=== PATIENT | male | born 1940 | race Caucasian/White ===

== ENCOUNTER → 2023-07-09 06:08 | Outpatient (REF) | payer BC, MEDICARE, SELFPAY ==
[2023-07-09 10:05] LABS: Glycohemoglobin (HgbA1c) 6.5 % (4.0-5.6)
[2023-07-09 10:09] LABS: ALT (SGPT) 58 U/L (0-50); AST (SGOT) 52 U/L (17-59); Albumin 4.4 g/dl (3.5-5.0); Alkaline Phosphatase 57 U/L (38-126); Blood Urea Nitrogen 37 mg/dl (9-20); Calcium 9.6 mg/dl (8.4-10.2); Carbon Dioxide 24 mmol/L (22-30); Chloride 107 mmol/L (98-107); Glucose 120 mg/dl (70-99); HDL Cholesterol 30 mg/dl; LDL Cholesterol, Calculated 58 mg/dl; Potassium 4.4 mmol/L (3.5-5.1); Sodium 138 mmol/L (135-145); Total Cholesterol 123 mg/dl (50-199); Total Protein 7.3 g/dl (6.3-8.2); Triglyceride 176 mg/dl (10-149); Very Low Density Lipoprotein 35 mg/dl (0-30); eGFR > 60.00
[2023-07-09 10:13] LABS: Urine Protein 5 mg/dl
[2023-07-09 10:18] LABS: Microalbumin, Random Urine 3.3 mg/dl (0.6-1.7); Microalbumin/creatinine Ratio 29.9 mg/g
== END ==
LOC: HWLAB 06:08
PROVIDERS: ATTENDING PHYSICIAN Internal Medicine Endocrinology, Diabetes & Metabolism; FAMILY PHYSICIAN Family Medicine
DX: E11.9 Type 2 diabetes mellitus without complications (principal); E11.65 Type 2 diabetes mellitus with hyperglycemia; Z79.4 Long term (current) use of insulin; I10 Essential (primary) hypertension; E03.8 Other specified hypothyroidism
CPT/HCPCS: 36415; 80053; 80061; 82043; 82570; 83036; 84156; 84443

== ENCOUNTER 2023-07-13 08:05 | Emergency (ER) | payer BC, SELFPAY ==
[2023-07-13 08:09] VITALS: BP 186/74
--- NOTE | 2023-07-13 08:33 | ED.GENMED ---
History of Present Illness
General
Chief Complaint: Back Pain
Time Seen by Provider: 07/13/23 08:23
Travel History
Have you had any contact with someone who has COVID-19?: No
Do you have any symptoms of coronavirus? Fever > 100 degrees, chills, cough, shortness of breath, sore throat, loss of taste or smell, muscle aches, or headache?: No
History of Present Illness
History of Present Illness:
83-year-old male with history of insulin-dependent diabetes, hypothyroidism, and hypertension presents to the emergency department for evaluation of acute onset left-sided low back pain radiating to the left foot upon awakening today. Pain is quite
positional and worse when he is upright or attempting to walk. Has no pain while lying semireclined in the exam bed. Denies any lower extremity paresthesias. No recent lower urinary tract voiding symptoms, hematuria, or urinary retention. Denies
any associated fevers or chills. No recent traumatic injuries or known inciting events
Past History
Past History
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
ED Past Surgical History: Urological (Ureteral stent, TUPR, Lithotripsy) and Other (bilateral Inguinal hernia repair 1978 -1979 Parathyroid resection, Cataract surgery)
Social History
Tobacco: Former smoker
Alcohol: Occasional
Drug: None
Personal:
Living: with family
Employment: Retired
Family History
Family History: Other (Noncontributory)
Review of Systems
Review of Systems
Allergies reviewed?: Yes
All Other Systems: ROS reviewed and negative except as documented in HPI and ROS
Phy Exam
Physical Exam
Physical Exam:
GEN: Well appearing, NAD, WDWN
HEENT: Oral mucosa moist, no scleral icterus
Cardiac: Regular rate
Lung: No respiratory distress, no tachypnea
MSK: No gross deformity or injuries. No midline lumbar spine tenderness. No paraspinous muscle tenderness. Patient notes increased pain when lying supine. Left hip range of motion without crepitus or elicited pain. Positive straight leg raise
at 30 degrees
Skin: Good color, no pallor or jaundice, no rashes
Neuro: AO x3, moves all extremities freely
Psych: Calm, cooperative
Course
Orders/Labs/Results
Orders:
Orders
07/13/23 08:32
Ketorolac [Toradol] 30 mg IM NOW STA
07/13/23 08:45
Lidocaine [Lidocaine 4% Patch] 1 patch TOPICAL DAILY
Vital Signs
Initial and Last Documented VS:
Initial Vital Signs
Temp Pulse Resp BP Pulse Ox
97.8 F 61 16 186/74 98
07/13/23 08:09 07/13/23 08:09 07/13/23 08:09 07/13/23 08:09 07/13/23 08:09
Last Documented Vital Signs
Temp Pulse Resp BP Pulse Ox
97.8 F 61 16 186/74 98
07/13/23 08:09 07/13/23 08:09 07/13/23 08:09 07/13/23 08:09 07/13/23 08:09
MDM/Problems Addressed
MDM/Problems Addressed:
Clinical symptoms are consistent with acute radiculopathy, potentially discogenic in nature versus muscular. Patient has no urinary incontinence, no saddle anesthesias concerning for emergent condition such as cauda equina. No trauma that would
warrant imaging. Given he is diabetic and has had a recent remarkable improvement in his hemoglobin A1c I find it excessive to trial steroids at this time, we will give him a short course of NSAIDs and nighttime use muscle relaxants, outpatient
physical therapy orders written if symptoms do not improve in the next 3 to 5 days
*Critical Care Note
Total Time (30-74mins, 75-104mins- exclusive of procedures): Not Applicable
ED Attending Note
-
Portions of this chart may have been created with voice recognition software.� Occasional wrong word or��sound alike� substitutions may have occurred due to the inherent limitations of voice recognition software.
Discharge Plan
Departure
Patient Disposition: Home (Routine Discharge)
Date of Disposition: 07/13/23
Time of Disposition: 09:35
Patient with high blood pressure during this ER visit?: No
Discharge Problem:
Acute left lumbar radiculopathy
Instructions: Sciatica (DC)
Prescriptions:
New
diclofenac sodium 50 mg tablet,delayed release (DR/EC)
50 mg PO BID PRN (Reason: Pain) Qty: 20 0RF
methocarbamol 500 mg tablet
500 mg PO HS PRN (Reason: muscle pain) Qty: 10 0RF
No Action
levothyroxine 200 MCG tablet
200 mcg PO QPM
aspirin 325 MG tablet,delayed release (DR/EC)
325 mg PO DAILY
potassium citrate 10 MEQ tablet extended release
10 meq PO QPM
simvastatin 20 MG tablet
20 mg PO QPM
metformin 500 MG tablet extended release 24 hr
1,000 mg PO QPM
amlodipine 5 MG tablet
10 mg PO QPM
hydrochlorothiazide 25 mg Tablet
25 mg PO QPM
insulin glargine [Basaglar KwikPen U-100 Insulin] 100 unit/mL (3 mL) Insulin Pen
44 unit SC HS
Rx Instructions:
pt took 35 units
Aspart Flex Pen
10 unit SC AC
Rx Instructions:
10 units
tamsulosin [Flomax] 0.4 mg capsule
0.4 mg PO HS Qty: 7 0RF
ondansetron 4 mg tablet,disintegrating
4 mg PO Q8H PRN (Reason: nausea and vomiting) Qty: 7 0RF
oxycodone-acetaminophen [Percocet] 5-325 mg tablet
1 tab PO Q4HPRN PRN (Reason: pain) Qty: 10 0RF
meclizine 12.5 mg tablet
12.5 - 25 mg PO TID PRN (Reason: dizziness) Qty: 15 0RF
Referrals:
Aayush Ashby MD [Family Provider] -
Activity Restrictions/Additional Instructions:
No over the counter aspirin/ibuprofen/naproxen while using the diclofenac
Use the muscle relaxant only at nighttime
If your symptoms are not improving over the weekend, schedule a follow up appointment with physical therapy
If you develop difficulty urinating or numbness in your thighs, return to the ER immediately
Follow up with your primary doctor within 1 week
Interventions
Interventions:
*Risk Screen - Suicide Last Done: 07/13/23 08:09
*General Assessment Last Done: 07/13/23 08:09
*Neglect/Abuse Screening Last Done: 07/13/23 08:09
ED- Fall Risk Assessment Last Done: 07/13/23 09:19
ED-Musculoskeletal Assessment Last Done: 07/13/23 09:19
[2023-07-13] MEDS: TORADOL 30 MG IM (09:09)
[2023-07-13] MEDS: LIDOCAINE 4% PATCH 1 PATCH TOPICAL (09:10)
== END 2023-07-13 09:45 | disposition home or self-care (01) ==
LOC: EMR 08:05
PROVIDERS: EMERGENCY PHYSICIAN Emergency Medicine; FAMILY PHYSICIAN Family Medicine
DX: M54.16 Radiculopathy, lumbar region (principal); E11.9 Type 2 diabetes mellitus without complications; Z87.891 Personal history of nicotine dependence
CPT/HCPCS: 99284; 96372

== ENCOUNTER 2023-08-20 14:28 | Emergency (ER) | payer BC, SELFPAY ==
[2023-08-20 14:33] VITALS: BP 119/63
[2023-08-20 14:56] LABS: % Basophils 0.2 % (0-2); % Eosinophils 2.9 % (0-6); % Immature Granulocytes 0.6 % (0-0.5); % Lymphocytes 14.1 % (20.5-51.1); % Neutrophils 74.2 % (42.2-75.2); Absolute Eosinophils 0.3 10^3/uL (0-0.7); Absolute Immature Granulocytes 0.1 10^3/uL (0-0.05); Absolute Lymphocytes 1.2 10^3/uL (1.2-3.4); Absolute Monocytes 0.7 10^3/uL (0.1-0.6); Absolute Neutrophils 6.3 10^3/uL (1.4-6.5); Hematocrit 44.5 % (39.0-52.0); Hemoglobin 15.8 g/dL (13.0-18.0); Mean Corp Hgb Conc. 35.5 g/dL (33.0-37.0); Mean Corpuscular Hgb 29.5 pg (27.0-31.0); Nucleated Red Blood Cells % 0 % (-); Platelet Count 145 10^3/uL (130-400); Red Blood Cell Count 5.36 10^6/uL (4.70-6.10); Red Cell Dist. Width 14.6 % (11.5-14.5); White Blood Cell Count 8.5 10^3/uL (4.8-10.8)
[2023-08-20 14:57] LABS: Urine Albumin Trace (Neg - Trace); Urine Bilirubin Negative (Negative); Urine Character Clear (Clear); Urine Color Yellow; Urine Glucose Negative (Negative); Urine Ketone Negative (Negative); Urine Leukocyte Negative (Negative); Urine Nitrite Negative (Negative); Urine Occult Blood Negative (Negative); Urine Urobilinogen Negative (Neg - 1+)
[2023-08-20 15:30] LABS: ALT (SGPT) 66 U/L (0-50); AST (SGOT) 49 U/L (17-59); Albumin 4.6 g/dl (3.5-5.0); Alkaline Phosphatase 65 U/L (38-126); Blood Urea Nitrogen 27 mg/dl (9-20); Calcium 9.4 mg/dl (8.4-10.2); Carbon Dioxide 22 mmol/L (22-30); Chloride 107 mmol/L (98-107); Glucose 116 mg/dl (70-99); Potassium 4.5 mmol/L (3.5-5.1); Sodium 136 mmol/L (135-145); Total Bilirubin 1.4 mg/dl (0.2-1.3); Total Protein 7.7 g/dl (6.3-8.2); eGFR > 60.00
[2023-08-20 16:16] VITALS: BP 157/71
--- NOTE | 2023-08-20 16:20 | ED.GENMED ---
History of Present Illness
General
Chief Complaint: Back Pain
Time Seen by Provider: 08/20/23 15:41
Travel History
Have you had any contact with someone who has COVID-19?: No
Do you have any symptoms of coronavirus? Fever > 100 degrees, chills, cough, shortness of breath, sore throat, loss of taste or smell, muscle aches, or headache?: No
History of Present Illness
History of Present Illness:
83-year-old male with history of hypertension and hyperlipidemia presents to the emergency department for evaluation of left lower back pain that developed yesterday. 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
began. It worsened this morning. He is concerned that it could be a kidney stone although denies any radiation of symptoms anteriorly or any difficulty with urination. He was seen in this emergency department approximately 1 month ago for
left-sided lumbar radiculopathy and improved after anti-inflammatory administration.
Past History
Past History
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
ED Past Surgical History: Urological (Ureteral stent, TUPR, Lithotripsy) and Other (bilateral Inguinal hernia repair 1978 -1979 Parathyroid resection, Cataract surgery)
Social History
Tobacco: Former smoker
Alcohol: Occasional
Drug: None
Personal:
Living: with family
Employment: Retired
Family History
Family History: Other (Noncontributory)
Review of Systems
Review of Systems
Allergies reviewed?: Yes
All Other Systems: ROS reviewed and negative except as documented in HPI and ROS
Phy Exam
Physical Exam
Physical Exam:
GEN: Well appearing, NAD, WDWN
HEENT: Oral mucosa moist, no scleral icterus
Cardiac: Regular rate
Lung: No respiratory distress, no tachypnea
MSK: No gross deformity or injuries. Reproducible tenderness to the left lumbar paraspinous musculature, no CVA tenderness bilaterally. Negative straight leg raise test bilaterally, normal left hip range of motion
Skin: Good color, no pallor or jaundice, no rashes
Neuro: AO x3, moves all extremities freely
Psych: Calm, cooperative
Course
Orders/Labs/Results
Orders:
Orders
08/20/23 14:43
Complete Blood Count/With Diff Urgent
Comprehensive Metabolic Panel Urgent
Urinalysis Reflex To Culture Urgent
Date Specimen was Collected: 08/20/23
Time Specimen was Collected: 14:36
08/20/23 16:17
Ketorolac [Toradol] 30 mg IM NOW STA
Abnormal Lab Results
08/20/23
14:43
RDW 14.6 H %
(11.5-14.5)
MPV 11.0 H fL
(7.4-10.4)
Abs Immat Gran (auto) 0.1 H 10^3/uL
(0-0.05)
Absolute Monos (auto) 0.7 H 10^3/uL
(0.1-0.6)
Immature Gran % 0.6 H %
(0-0.5)
Lymphocytes % 14.1 L %
(20.5-51.1)
BUN 27 H mg/dl
(9-20)
Glucose 116 H mg/dl
(70-99)
Total Bilirubin 1.4 H mg/dl
(0.2-1.3)
ALT 66 H U/L
(0-50)
08/20/23 14:43
08/20/23 14:43
Vital Signs
Initial and Last Documented VS:
Initial Vital Signs
Temp Pulse Resp BP Pulse Ox
99.5 F 95 18 119/63 100
08/20/23 14:33 08/20/23 14:33 08/20/23 14:33 08/20/23 14:33 08/20/23 14:33
Last Documented Vital Signs
Temp Pulse Resp BP Pulse Ox
99.5 F 89 16 157/71 95
08/20/23 14:33 08/20/23 16:16 08/20/23 16:16 08/20/23 16:16 08/20/23 16:16
MDM/Problems Addressed
MDM/Problems Addressed:
Patient's labs are reassuring and lack of hematuria is suggestive of musculoskeletal etiology as opposed to kidney stone. No indication for imaging from my standpoint. Will treat with short course of NSAIDs, he was given diclofenac during his last
stay and did not take this fully thus he will continue to take it until resolution of pain
*Critical Care Note
Total Time (30-74mins, 75-104mins- exclusive of procedures): Not Applicable
ED Attending Note
-
Portions of this chart may have been created with voice recognition software.� Occasional wrong word or��sound alike� substitutions may have occurred due to the inherent limitations of voice recognition software.
Discharge Plan
Departure
Patient Disposition: Home (Routine Discharge)
Date of Disposition: 08/20/23
Time of Disposition: 16:31
Patient with high blood pressure during this ER visit?: No
Discharge Problem:
Low back pain
Instructions: Low Back Pain (DC)
Prescriptions:
No Action
levothyroxine 200 MCG tablet
200 mcg PO QPM
aspirin 325 MG tablet,delayed release (DR/EC)
325 mg PO DAILY
potassium citrate 10 MEQ tablet extended release
10 meq PO QPM
simvastatin 20 MG tablet
20 mg PO QPM
metformin 500 MG tablet extended release 24 hr
1,000 mg PO QPM
amlodipine 5 MG tablet
10 mg PO QPM
hydrochlorothiazide 25 mg Tablet
25 mg PO QPM
insulin glargine [Basaglar KwikPen U-100 Insulin] 100 unit/mL (3 mL) Insulin Pen
44 unit SC HS
Rx Instructions:
pt took 35 units
Aspart Flex Pen
10 unit SC AC
Rx Instructions:
10 units
tamsulosin [Flomax] 0.4 mg capsule
0.4 mg PO HS Qty: 7 0RF
ondansetron 4 mg tablet,disintegrating
4 mg PO Q8H PRN (Reason: nausea and vomiting) Qty: 7 0RF
oxycodone-acetaminophen [Percocet] 5-325 mg tablet
1 tab PO Q4HPRN PRN (Reason: pain) Qty: 10 0RF
meclizine 12.5 mg tablet
12.5 - 25 mg PO TID PRN (Reason: dizziness) Qty: 15 0RF
diclofenac sodium 50 mg tablet,delayed release (DR/EC)
50 mg PO BID PRN (Reason: Pain) Qty: 20 0RF
methocarbamol 500 mg tablet
500 mg PO HS PRN (Reason: muscle pain) Qty: 10 0RF
Referrals:
Aayush Ashby MD [Family Provider] -
Activity Restrictions/Additional Instructions:
Take the diclofenac you were prescribed during your last visit here twice daily
Return if symptoms worsen
Interventions
Interventions:
*Risk Screen - Suicide Last Done: 08/20/23 14:33
*General Assessment Last Done: 08/20/23 14:33
*Neglect/Abuse Screening Last Done: 08/20/23 14:33
ED- Fall Risk Assessment Last Done: 08/20/23 16:11
*ED COVID-19 Vaccine History Last Done: 08/20/23 14:33
*Nursing Disposition Last Done: 08/20/23 16:30
ED-Musculoskeletal Assessment Last Done: 08/20/23 16:11
Discharge Date and Time
Discharge Date/Time: 08/20/23 16:30
Print Language: FRENCH
[2023-08-20] MEDS: TORADOL 30 MG IM (16:27)
--- NOTE | 2023-08-20 17:14 | EDRN ---
Discharge instructions given to patient by Jimy Sher PA-C.
== END 2023-08-20 16:30 | disposition home or self-care (01) ==
LOC: EMR 14:28
PROVIDERS: EMERGENCY PHYSICIAN Emergency Medicine; FAMILY PHYSICIAN Family Medicine
DX: M54.50 Low back pain, unspecified (principal); I10 Essential (primary) hypertension; E78.00 Pure hypercholesterolemia, unspecified; Z87.891 Personal history of nicotine dependence
CPT/HCPCS: 99284; 96372; 80053; 81003; 85025

== ENCOUNTER → 2023-10-01 06:28 | Outpatient (REF) | payer BC, SELFPAY | LOC: HWLAB 06:28 | PROVIDERS: ATTENDING PHYSICIAN Specialist; FAMILY PHYSICIAN Family Medicine | DX: N20.0 Calculus of kidney (principal); N20.1 Calculus of ureter | CPT/HCPCS: 74018 ==

== ENCOUNTER → 2023-11-13 06:13 | Outpatient (REF) | payer BC, SELFPAY ==
[2023-11-13 09:54] LABS: ALT (SGPT) 50 U/L (0-50); AST (SGOT) 44 U/L (17-59); Albumin 4.4 g/dl (3.5-5.0); Alkaline Phosphatase 58 U/L (38-126); Blood Urea Nitrogen 29 mg/dl (9-20); Calcium 9.9 mg/dl (8.4-10.2); Carbon Dioxide 26 mmol/L (22-30); Chloride 103 mmol/L (98-107); Glucose 154 mg/dl (70-99); Potassium 4.3 mmol/L (3.5-5.1); Sodium 139 mmol/L (135-145); Total Bilirubin 0.8 mg/dl (0.2-1.3); eGFR > 60.00
[2023-11-13 10:09] LABS: Protein/creatinine Ratio 0.1; Urine Protein 10 mg/dl
[2023-11-13 10:16] LABS: Glycohemoglobin (HgbA1c) 6.5 % (4.0-5.6)
== END ==
LOC: HWLAB 06:13
PROVIDERS: ATTENDING PHYSICIAN Internal Medicine Endocrinology, Diabetes & Metabolism; FAMILY PHYSICIAN Family Medicine
DX: E11.9 Type 2 diabetes mellitus without complications (principal)
CPT/HCPCS: 36415; 80053; 82570; 83036; 84156

== ENCOUNTER → 2024-01-03 06:08 | Outpatient (REF) | payer BC, SELFPAY ==
[2024-01-03 09:38] LABS: % Basophils 0.6 % (0-2); % Eosinophils 4.9 % (0-6); % Immature Granulocytes 0.6 % (0-0.5); % Lymphocytes 31.7 % (20.5-51.1); % Monocytes 9.8 % (1.7-9.3); % Neutrophils 52.4 % (42.2-75.2); Absolute Eosinophils 0.4 10^3/uL (0-0.7); Absolute Lymphocytes 2.3 10^3/uL (1.2-3.4); Absolute Monocytes 0.7 10^3/uL (0.1-0.6); Absolute Neutrophils 3.7 10^3/uL (1.4-6.5); Hematocrit 41.7 % (39.0-52.0); Hemoglobin 14.5 g/dL (13.0-18.0); Mean Corp Hgb Conc. 34.8 g/dL (33.0-37.0); Mean Corpuscular Hgb 29.2 pg (27.0-31.0); Mean Corpuscular Volume 84.1 fL (80.0-94.0); Nucleated Red Blood Cells % 0 % (-); Platelet Count 147 10^3/uL (130-400); Red Blood Cell Count 4.96 10^6/uL (4.70-6.10); Red Cell Dist. Width 13.6 % (11.5-14.5); White Blood Cell Count 7.1 10^3/uL (4.8-10.8)
[2024-01-03 10:14] LABS: ALT (SGPT) 53 U/L (0-50); AST (SGOT) 47 U/L (17-59); Albumin 4.6 g/dl (3.5-5.0); Alkaline Phosphatase 62 U/L (38-126); Blood Urea Nitrogen 28 mg/dl (9-20); Calcium 10.1 mg/dl (8.4-10.2); Carbon Dioxide 26 mmol/L (22-30); Chloride 103 mmol/L (98-107); Glucose 146 mg/dl (70-99); HDL Cholesterol 31 mg/dl; LDL Cholesterol, Calculated 79 mg/dl; Potassium 4.4 mmol/L (3.5-5.1); Sodium 142 mmol/L (135-145); Total Bilirubin 1.1 mg/dl (0.2-1.3); Total Cholesterol 140 mg/dl (50-199); Total Protein 7.3 g/dl (6.3-8.2); Triglyceride 153 mg/dl (10-149); Very Low Density Lipoprotein 30 mg/dl (0-30); eGFR 55.19
[2024-01-03 10:46] LABS: Glycohemoglobin (HgbA1c) 6.4 % (4.0-5.6)
== END ==
LOC: HWLAB 06:08
PROVIDERS: ATTENDING PHYSICIAN Family Medicine
DX: I10 Essential (primary) hypertension (principal); E78.49 Other hyperlipidemia; E11.65 Type 2 diabetes mellitus with hyperglycemia; Z79.4 Long term (current) use of insulin
CPT/HCPCS: 36415; 80053; 80061; 83036; 85025

== ENCOUNTER → 2024-04-28 06:03 | Outpatient (REF) | payer BC, SELFPAY ==
[2024-04-28 10:15] LABS: ALT (SGPT) 48 U/L (0-50); AST (SGOT) 42 U/L (17-59); Albumin 4.4 g/dl (3.5-5.0); Alkaline Phosphatase 62 U/L (38-126); Blood Urea Nitrogen 30 mg/dl (9-20); Calcium 9.5 mg/dl (8.4-10.2); Carbon Dioxide 25 mmol/L (22-30); Chloride 101 mmol/L (98-107); Glucose 152 mg/dl (70-99); Potassium 4.6 mmol/L (3.5-5.1); Sodium 138 mmol/L (135-145); Total Bilirubin 0.8 mg/dl (0.2-1.3); Total Protein 7.2 g/dl (6.3-8.2); eGFR > 60.00
[2024-04-28 11:03] LABS: Glycohemoglobin (HgbA1c) 6.5 % (4.0-5.6)
== END ==
LOC: HWLAB 06:03
PROVIDERS: ATTENDING PHYSICIAN Internal Medicine Endocrinology, Diabetes & Metabolism; FAMILY PHYSICIAN Family Medicine
DX: E11.9 Type 2 diabetes mellitus without complications (principal)
CPT/HCPCS: 36415; 80053; 83036

== ENCOUNTER → 2024-07-04 06:08 | Outpatient (REF) | payer BC, SELFPAY ==
[2024-07-04 09:41] LABS: ALT (SGPT) 59 U/L (0-50); AST (SGOT) 50 U/L (17-59); Albumin 4.9 g/dl (3.5-5.0); Alkaline Phosphatase 64 U/L (38-126); Blood Urea Nitrogen 28 mg/dl (9-20); Calcium 10.1 mg/dl (8.4-10.2); Carbon Dioxide 29 mmol/L (22-30); Chloride 101 mmol/L (98-107); Glucose 142 mg/dl (70-99); HDL Cholesterol 35 mg/dl; LDL Cholesterol, Calculated 94 mg/dl; Potassium 4.9 mmol/L (3.5-5.1); Sodium 139 mmol/L (135-145); Total Bilirubin 1.4 mg/dl (0.2-1.3); Total Cholesterol 161 mg/dl (50-199); Total Protein 7.8 g/dl (6.3-8.2); Triglyceride 164 mg/dl (10-149); Very Low Density Lipoprotein 32 mg/dl (0-30); eGFR > 60.00
[2024-07-04 10:23] LABS: Glycohemoglobin (HgbA1c) 6.9 % (4.0-5.6)
[2024-07-04 10:37] LABS: Microalbumin, Random Urine 12.8 mg/dl (0.6-1.7); Microalbumin/creatinine Ratio 113.1 mg/g
== END ==
LOC: HWLAB 06:08
PROVIDERS: ATTENDING PHYSICIAN Family Medicine
DX: E11.65 Type 2 diabetes mellitus with hyperglycemia (principal); Z79.4 Long term (current) use of insulin; I10 Essential (primary) hypertension; E78.49 Other hyperlipidemia
CPT/HCPCS: 36415; 80053; 80061; 82043; 82570; 83036

== ENCOUNTER → 2024-10-21 06:01 | Outpatient (REF) | payer BC, SELFPAY ==
[2024-10-21 09:47] LABS: ALT (SGPT) 50 U/L (0-50); AST (SGOT) 43 U/L (17-59); Albumin 4.4 g/dl (3.5-5.0); Alkaline Phosphatase 59 U/L (38-126); Blood Urea Nitrogen 32 mg/dl (9-20); Calcium 9.0 mg/dl (8.4-10.2); Carbon Dioxide 23 mmol/L (22-30); Chloride 107 mmol/L (98-107); Glucose 166 mg/dl (70-99); HDL Cholesterol 26 mg/dl; LDL Cholesterol, Calculated 68 mg/dl; Potassium 4.6 mmol/L (3.5-5.1); Sodium 140 mmol/L (135-145); Total Protein 7.2 g/dl (6.3-8.2); Very Low Density Lipoprotein 31 mg/dl (0-30); eGFR 46.19
[2024-10-21 10:19] LABS: Glycohemoglobin (HgbA1c) 7.1 % (4.0-5.6)
[2024-10-21 10:43] LABS: TSH 0.68 uIU/ml (0.47-4.68)
== END ==
LOC: HWLAB 06:01
PROVIDERS: ATTENDING PHYSICIAN Internal Medicine Endocrinology, Diabetes & Metabolism; FAMILY PHYSICIAN Family Medicine
DX: E11.9 Type 2 diabetes mellitus without complications (principal)
CPT/HCPCS: 36415; 80053; 80061; 82570; 83036; 84156; 84439; 84443

== ENCOUNTER → 2025-01-12 06:05 | Outpatient (REF) | payer BC, SELFPAY ==
[2025-01-12 10:28] LABS: ALT (SGPT) 56 U/L (0-50); AST (SGOT) 46 U/L (17-59); Albumin 4.5 g/dl (3.5-5.0); Alkaline Phosphatase 52 U/L (38-126); Blood Urea Nitrogen 26 mg/dl (9-20); Calcium 9.3 mg/dl (8.4-10.2); Carbon Dioxide 27 mmol/L (22-30); Chloride 104 mmol/L (98-107); Glucose 193 mg/dl (70-99); HDL Cholesterol 31 mg/dl; LDL Cholesterol, Calculated 75 mg/dl; Potassium 4.9 mmol/L (3.5-5.1); Sodium 138 mmol/L (135-145); Total Protein 7.4 g/dl (6.3-8.2); Very Low Density Lipoprotein 40 mg/dl (0-30); eGFR > 60.00
[2025-01-12 10:34] LABS: TSH 4.11 uIU/ml (0.47-4.68)
[2025-01-12 11:14] LABS: Glycohemoglobin (HgbA1c) 7.7 % (4.0-5.6)
== END ==
LOC: HWLAB 06:05
PROVIDERS: ATTENDING PHYSICIAN Family Medicine
DX: I10 Essential (primary) hypertension (principal); E03.8 Other specified hypothyroidism; E11.65 Type 2 diabetes mellitus with hyperglycemia; Z79.4 Long term (current) use of insulin; E78.49 Other hyperlipidemia
CPT/HCPCS: 80053; 80061; 83036; 84443